=== PATIENT | female | born 1945 | race Two or more races ===

== ENCOUNTER → 2018-03-29 | Outpatient (CLI) | payer OTHER ==
[~2018-03-29] MED LIST: ATENOLOL25 GM; ATENOLOL25 GM PO; CALCITRIOL0.5 MCG PO; COZAAR25 MG; Cozaar PO; INTESTINEX680 MG PO; PROTONIX40 MG PO; SINGULAIR 10MG10 MG PO; TAMBOCOR PO; TAMBOCOR150 MG; TAPAZOLE10 MG PO; TESSALON PERLE100 M1; ZYRTEC10 M3 PO; [UNRECOGNIZED DRUG - OTHER] PO; [UNRECOGNIZED DRUG - SUPPLY]
== END | disposition home or self-care (01) ==
LOC: NUCLEAR 13:17
DX: C73 Malignant neoplasm of thyroid gland (principal); E89.0 Postprocedural hypothyroidism
CPT/HCPCS: 78018; 78020; A9528